=== PATIENT | female | born 1990 | race Caucasian/White ===

== ENCOUNTER 2019-01-28 15:05 | Observation (INO) | payer MEDICAID ==
[2019-01-28] MEDS ORDERED: Sodium Chloride 0.9% 10 ML Syringe FLUSH PRN ×2 (15:10→16:56)
[2019-01-28] MEDS ORDERED: Sodium Chloride 0.9% 2.5 ML Syringe FLUSH PRN ×2 (15:10→16:56)
[2019-01-28] MEDS ORDERED: HYDROmorphone 1 MG/ML Syringe IM ONE (15:30)
[2019-01-28 16:09] LABS: BLOOD UREA NITROGEN,BUN 5 mg/dL (7.0-18.0); CARBON DIOXIDE,CO2 24.6 mmol/L (21.0-32.0); CHLORIDE,CL 100 mmol/L (98-107); GLUCOSE RANDOM 87 mg/dL (74-106); POTASSIUM,K 4.2 mmol/L (3.5-5.1); SODIUM,NA 135 mmol/L (136-145)
--- NOTE | 2019-01-28 16:09 | EDM.PDOC ---
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: Immunologic History: Reports: Other (See Below) Other Immunologic History: Lupus - Past Surgical History HEENT Surgical History: Reports: Adenoidectomy, Tonsillectomy Female Surgical History: Reports: Section Social & Family History - Family History Family Medical History: Noncontributory - Tobacco Use Smoking Status *Q: Current Every Day Smoker Years of Tobacco use: 8 Packs/Tins Daily: 0.5 - Recreational Drug Use Recreational Drug Use: No Course - Vital Signs Last Recorded V/S: Last Vital Signs Temp 96.6 F 01/28/19 15:15 Pulse 102 H 01/28/19 15:15 Resp 18 01/28/19 15:15 BP 128/74 01/28/19 15:15 Pulse Ox 100 01/28/19 15:15 - Orders/Labs/Meds Orders: Active Orders 24 hr Category Date Time Status Breast Complete Lt [US] Stat Exams 01/28/19 15:09 Taken COMPREHENSIVE METABOLIC PN,CMP [CHEM] Stat Lab 01/28/19 15:27 Received CULTURE BLOOD [BC] Stat Lab 01/28/19 15:27 Received CULTURE BLOOD [BC] Stat Lab 01/28/19 15:40 Received Sodium Chloride 0.9% [Saline Flush] Med 01/28/19 15:10 Active 10 ml FLUSH ASDIRECTED PRN Sodium Chloride 0.9% [Saline Flush] Med 01/28/19 15:10 Active 2.5 ml FLUSH ASDIRECTED PRN Blood Culture x2 Reflex Set [OM.PC] Stat Oth 01/28/19 15:09 Ordered Saline Lock Insert [OM.PC] Stat Oth 01/28/19 15:10 Ordered Medication Orders Sodium Chloride (Saline Flush) 10 ml FLUSH ASDIRECTED PRN PRN Reason: Keep Vein Open Sodium Chloride (Saline Flush) 2.5 ml FLUSH ASDIRECTED PRN PRN Reason: Keep Vein Open Labs: Laboratory Tests 01/28/19 01/28/19 Range/Units 15:27 15:27 WBC 15.54 H (4.0-11.0) K/uL RBC 4.45 (4.30-5.90) M/uL Hgb 12.5 (12.0-16.0) g/dL Hct 38.2 (36.0-46.0) % MCV 85.8 (80.0-98.0) fL MCH 28.1 (27.0-32.0) pg MCHC 32.7 (31.0-37.0) g/dL RDW Std Deviation 39.6 (28.0-62.0) fl RDW Coeff of Daily 13 (11.0-15.0) % Plt Count 443 H (150-400) K/uL MPV 8.50 (7.40-12.00) fL Neut % (Auto) 75.0 (48.0-80.0) % Lymph % (Auto) 14.9 L (16.0-40.0) % [place] % (Auto) 8.9 (0.0-15.0) % Eos % (Auto) 0.9 (0.0-7.0) % Baso % (Auto) 0.3 (0.0-1.5) % Neut # (Auto) 11.7 H (1.4-5.7) K/uL Lymph # (Auto) 2.3 (0.6-2.4) K/uL [place] # (Auto) 1.4 H (0.0-0.8) K/uL Eos # (Auto) 0.1 (0.0-0.7) K/uL Baso # (Auto) 0.0 (0.0-0.1) K/uL Nucleated RBC % 0.0 /100WBC Nucleated RBCs # 0 K/uL Lactate 0.8 (0.20-2.00) mmol/L Meds: Medications Generic Name Dose Route Start Last Admin Trade Name Freq PRN Reason Stop Dose Admin Sodium Chloride 10 ml 01/28/19 15:10 Saline Flush FLUSH ASDIRECTED PRN Keep Vein Open Sodium Chloride 2.5 ml 01/28/19 15:10 Saline Flush FLUSH ASDIRECTED PRN Keep Vein Open Discontinued Medications Generic Name Dose Route Start Last Admin Trade Name Parisa PRN Reason Stop Dose Admin Hydromorphone HCl 1 mg 01/28/19 15:30 Dilaudid IM 01/28/19 15:31 ONETIME ONE Departure - Discharge Information Referrals: PCP,None [Primary Care Provider] - - My Orders Last 24 Hours: My Active Orders 01/28/19 15:09 Breast Complete Lt [US] Stat Blood Culture x2 Reflex Set [OM.PC] Stat 01/28/19 15:10 Sodium Chloride 0.9% [Saline Flush] 10 ml FLUSH ASDIRECTED PRN Sodium Chloride 0.9% [Saline Flush] 2.5 ml FLUSH ASDIRECTED PRN Saline Lock Insert [OM.PC] Stat 01/28/19 15:27 COMPREHENSIVE METABOLIC PN,CMP [CHEM] Stat CULTURE BLOOD [BC] Stat 01/28/19 15:40 CULTURE BLOOD [BC] Stat - Assessment/Plan Last 24 Hours: My Active Orders 01/28/19 15:09 Breast Complete Lt [US] Stat Blood Culture x2 Reflex Set [OM.PC] Stat 01/28/19 15:10 Sodium Chloride 0.9% [Saline Flush] 10 ml FLUSH ASDIRECTED PRN Sodium Chloride 0.9% [Saline Flush] 2.5 ml FLUSH ASDIRECTED PRN Saline Lock Insert [OM.PC] Stat 01/28/19 15:27 COMPREHENSIVE METABOLIC PN,CMP [CHEM] Stat CULTURE BLOOD [BC] Stat 01/28/19 15:40 CULTURE BLOOD [BC] Stat
--- NOTE | 2019-01-28 16:36 | US ---
Left breast ultrasound: Multiple real-time images were obtained in symptomatic area. Comparison: Previous left breast ultrasound exam of 01/20/19. Previous study showed a hypoechoic area within the left breast measuring around 1.4 cm. This has significantly changed in the interim from prior exam which has enlarged up to 4.8 cm and is more irregular in appearance. Findings are suspicious for enlarging and complicated abscess. Impression: Worsening abnormality within the left breast as noted above most likely representing enlarging abscess. Diagnostic code #5 MTDD
[2019-01-28] MEDS ORDERED: diphenhydrAMINE 50 MG/ML SDV IVPUSH PRN (16:56)
[2019-01-28] MEDS ORDERED: Sodium Chloride 0.9% 10 ML SDV IV PRN (16:56)
[2019-01-28] MEDS ORDERED: Ondansetron 4 MG/2 ML SDV IVPUSH PRN (16:56)
[2019-01-28] MEDS ORDERED: HYDROmorphone 2 MG/ML Syringe IVPUSH PRN (16:56)
--- NOTE | 2019-01-28 17:09 | PCM.HP.2 ---
H&P History of Present Illness - General Date of Service: 01/28/19 Admit Problem/Dx: Admission Diagnosis/Problem Admission Diagnosis/Problem Mastitis Source of Information: Patient History Limitations: Reports: No Limitations - History of Present Illness Initial Comments - Free Text/Narative: Patient is a 28 year old female who presents with left breast abscess and mastitis. She developed pain redness and warmth last week. She presented to the ER and was found to have a small abscess with mastitis. She was placed on Bactrim. Since then her breast has become more erythematous, painful, and warm. She represented to an OSH ER today. She was transferred here for further work up and management. She has a history of lupus and was diagnosed with atrial fibrillation at one time. Her pulse was mildly elevated but she is also on metoprolol. BP was normal. WBC was 15.5K. US showed a 4.8 cm left retroareolar breast abscess. The only other surgery she has had is a tonsillectomy and adenoidectomy as a child and a section. She smokes socially and wears nipple rings however these are not in. 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 Exam - Exam Exam: See Below - Vital Signs Vital Signs: Last Vital Signs Temp 35.9 C 01/28/19 15:15 Pulse 102 H 01/28/19 15:15 Resp 18 01/28/19 15:15 BP 128/74 01/28/19 15:15 Pulse Ox 100 01/28/19 15:15 Weight: 79.8 kg - Exam General: Alert, Oriented, Cooperative HEENT: Conjunctiva Clear, Mucosa Moist & [place], Posterior Pharynx Clear Neck: Supple, Trachea Midline Lungs: Clear to Auscultation, Normal Respiratory Effort Cardiovascular: Regular Rate, Regular Rhythm Skin: Other (Large area of edematous red warm tender breast tissue with small area of fluctuance at the 12 oclock position on the left breast. No nipple drainage. ) Neuro Extensive - Mental Status: Alert, Oriented x3 - Patient Data Lab Results Last 24 hrs: Laboratory Results - last 24 hr 01/28/19 01/28/19 01/28/19 Range/Units 15:27 15:27 15:27 WBC 15.54 H (4.0-11.0) K/uL RBC 4.45 (4.30-5.90) M/uL Hgb 12.5 (12.0-16.0) g/dL Hct 38.2 (36.0-46.0) % MCV 85.8 (80.0-98.0) fL MCH 28.1 (27.0-32.0) pg MCHC 32.7 (31.0-37.0) g/dL RDW Std Deviation 39.6 (28.0-62.0) fl RDW Coeff of Daily 13 (11.0-15.0) % Plt Count 443 H (150-400) K/uL MPV 8.50 (7.40-12.00) fL Neut % (Auto) 75.0 (48.0-80.0) % Lymph % (Auto) 14.9 L (16.0-40.0) % [place] % (Auto) 8.9 (0.0-15.0) % Eos % (Auto) 0.9 (0.0-7.0) % Baso % (Auto) 0.3 (0.0-1.5) % Neut # (Auto) 11.7 H (1.4-5.7) K/uL Lymph # (Auto) 2.3 (0.6-2.4) K/uL [place] # (Auto) 1.4 H (0.0-0.8) K/uL Eos # (Auto) 0.1 (0.0-0.7) K/uL Baso # (Auto) 0.0 (0.0-0.1) K/uL Nucleated RBC % 0.0 /100WBC Nucleated RBCs # 0 K/uL Lactate 0.8 (0.20-2.00) mmol/L Sodium 135 L (136-145) mmol/L Potassium 4.2 (3.5-5.1) mmol/L Chloride 100 (98-107) mmol/L Carbon Dioxide 24.6 (21.0-32.0) mmol/L BUN 5 L (7.0-18.0) mg/dL Creatinine 0.7 (0.6-1.0) mg/dL Est Cr Clr Drug Dosing 91.90 mL/min Estimated GFR (MDRD) > 60.0 ml/min Glucose 87 (74-106) mg/dL Calcium 9.3 (8.5-10.1) mg/dL Total Bilirubin 0.3 (0.2-1.0) mg/dL AST 26 (15-37) IU/L ALT 33 (14-63) IU/L Alkaline Phosphatase 170 H (46-116) U/L Total Protein 8.2 (6.4-8.2) g/dL Albumin 3.2 L (3.4-5.0) g/dL Globulin 5.0 H (2.6-4.0) g/dL Albumin/Globulin Ratio 0.6 L (0.9-1.6) Result Diagrams: 01/28/19 15:27 01/28/19 15:27 - Problem List (1) Mastitis SNOMED Code(s): 109159940 ICD Code: N61.0 - MASTITIS WITHOUT ABSCESS Status: Acute Current Visit: Yes (2) Breast abscess SNOMED Code(s): 28237951 ICD Code: N61.1 - ABSCESS OF THE BREAST AND NIPPLE Status: Acute Current Visit: Yes Problem List Initiated/Reviewed/Updated: Yes Orders Last 24hrs: Active Orders 24 hr Category Date Time Status Patient Status [ADT] Routine ADT 01/28/19 16:56 Ordered Antiembolic Devices [RC] .Routine Care 01/28/19 17:02 Ordered Antiembolic Devices [RC] PER UNIT ROUTINE Care 01/28/19 17:02 Ordered EKG Documentation Completion [RC] STAT Care 01/28/19 16:51 Active Oxygen Therapy [RC] PRN Care 01/28/19 16:56 Ordered RT Incentive Spirometry [RC] Q1HWA Care 01/28/19 16:56 Ordered Up ad Marie [RC] ASDIRECTED Care 01/28/19 16:56 Ordered VTE/DVT Education [RC] PER UNIT ROUTINE Care 01/28/19 17:02 Ordered Vital Signs [RC] PER UNIT ROUTINE Care 01/28/19 16:56 Ordered Regular Diet [DIET] Diet 01/28/19 Dinner Ordered BASIC METABOLIC PANEL,BMP [CHEM] AM Lab 01/29/19 05:11 Ordered CBC W/O DIFF,HEMOGRAM [HEME] AM Lab 01/29/19 05:11 Ordered CULTURE BLOOD [BC] Stat Lab 01/28/19 15:27 Received CULTURE BLOOD [BC] Stat Lab 01/28/19 15:40 Received Acetaminophen/oxyCODONE [Percocet 325-5 MG] Med 01/28/19 16:56 Ordered 2 tab PO Q4H PRN Clindamycin Phosphate [Cleocin] 300 mg Med 01/28/19 17:15 Ordered Sodium Chloride 0.9% [Normal Saline] 50 ml IV Q8H Enoxaparin [Lovenox] Med 01/29/19 09:00 Ordered 40 mg SUBCUT DAILY HYDROmorphone [Dilaudid] Med 01/28/19 16:56 Ordered 0.5 mg IVPUSH Q1H PRN Ondansetron [Zofran] Med 01/28/19 16:56 Ordered 4 mg IVPUSH Q6H PRN Sodium Chloride 0.9% @ 125 MLS/HR (1000ml) Med 01/28/19 17:00 Ordered Sodium Chloride 0.9% [Normal Saline] 1,000 ml IV ASDIRECTED Sodium Chloride 0.9% [Normal Saline] Med 01/28/19 16:56 Ordered 10 ml IV ASDIRECTED PRN Sodium Chloride 0.9% [Saline Flush] Med 01/28/19 15:10 Active 10 ml FLUSH ASDIRECTED PRN Sodium Chloride 0.9% [Saline Flush] Med 01/28/19 16:56 Ordered 10 ml FLUSH ASDIRECTED PRN Sodium Chloride 0.9% [Saline Flush] Med 01/28/19 15:10 Active 2.5 ml FLUSH ASDIRECTED PRN Sodium Chloride 0.9% [Saline Flush] Med 01/28/19 16:56 Ordered 2.5 ml FLUSH ASDIRECTED PRN diphenhydrAMINE [Benadryl] Med 01/28/19 16:56 Ordered 50 mg IVPUSH Q4H PRN Blood Culture x2 Reflex Set [OM.PC] Stat Oth 01/28/19 15:09 Ordered DVT/VTE Prophylaxis Reflex [OM.PC] Routine Oth 01/28/19 17:02 Ordered Peripheral IV Insertion Adult [OM.PC] Urgent Oth 01/28/19 16:56 Ordered SCD [Sequential Compression Device] [OM.PC] Stat Oth 01/28/19 17:02 Ordered Saline Lock Insert [OM.PC] Stat Oth 01/28/19 15:10 Ordered Resuscitation Status Routine Resus Stat 01/28/19 16:56 Ordered Medication Orders Diphenhydramine HCl (Benadryl) 50 mg IVPUSH Q4H PRN PRN Reason: Itching Enoxaparin Sodium (Lovenox) 40 mg SUBCUT DAILY BRONWYN Hydromorphone HCl (Dilaudid) 0.5 mg IVPUSH Q1H PRN PRN Reason: Pain (severe 7-10) Clindamycin Phosphate 300 mg/ (Sodium Chloride) 52 mls @ 100 mls/hr IV Q8H BRONW[facility] Sodium Chloride (Normal Saline) 1,000 mls @ 125 mls/hr IV ASDIRECTED BRON[facility] Ondansetron HCl (Zofran) 4 mg IVPUSH Q6H PRN PRN Reason: Nausea/Vomiting Oxycodone/Acetaminophen (Percocet 325-5 Mg) 2 tab PO Q4H PRN PRN Reason: Pain (moderate 4-6) Sodium Chloride (Saline Flush) 10 ml FLUSH ASDIRECTED PRN PRN Reason: Keep Vein Open Sodium Chloride (Saline Flush) 2.5 ml FLUSH ASDIRECTED PRN PRN Reason: Keep Vein Open Sodium Chloride (Saline Flush) 10 ml FLUSH ASDIRECTED PRN PRN Reason: Keep Vein Open Sodium Chloride (Saline Flush) 2.5 ml FLUSH ASDIRECTED PRN PRN Reason: Keep Vein Open Sodium Chloride (Normal Saline) 10 ml IV ASDIRECTED PRN PRN Reason: IV Use Assessment/Plan Comment:: Patient is a 28 year old female with mastitis and a large breast abscess. She received vancomycin at the OSH but got red and itchy from it. She is allergic to amoxicillin. Will put her on IV clindamycin. Consented patient for incision and drainage of her left breast abscess for tomorrow. Pre-op EKG shows no evidence of atrial fibrillation. We discussed the procedure, need for dressing changes afterwards, expected yoseph-operative course and risks including bleeding infection or damage to surrounding structures. She verbalized understanding and wishes to proceed.
[2019-01-28] MEDS: Sodium Chloride 0.9% 1,000 ML IV SCH (18:05)
[2019-01-28] MEDS: Clindamycin Phosphate in D5W 300 MG in Premix Bag 1 BAG IV SCH ×2 (18:08)
[2019-01-28] MEDS: Acetaminophen/oxyCODONE 325-5 MG Tab PO PRN (18:41)
[2019-01-29] MEDS: Clindamycin Phosphate in D5W 300 MG in Premix Bag 1 BAG IV SCH ×4 (01:10→09:23)
[2019-01-29] MEDS: Sodium Chloride 0.9% 1,000 ML IV SCH (01:18)
[2019-01-29 05:38] LABS: BLOOD UREA NITROGEN,BUN 5 mg/dL (7.0-18.0); CARBON DIOXIDE,CO2 27.4 mmol/L (21.0-32.0); CHLORIDE,CL 102 mmol/L (98-107); GLUCOSE RANDOM 106 mg/dL (74-106); POTASSIUM,K 4.6 mmol/L (3.5-5.1); SODIUM,NA 137 mmol/L (136-145)
[2019-01-29] MEDS: Acetaminophen/oxyCODONE 325-5 MG Tab PO PRN ×3 (07:11→18:08)
[2019-01-29] MEDS: Enoxaparin 40 MG/0.4 ML Syringe SUBCUT SCH (09:29)
[2019-01-29] MEDS ORDERED: Propofol 200 MG/20 ML SDV ONE (10:11)
[2019-01-29] MEDS ORDERED: Midazolam 1 MG/ML 2 ML SDV ONE (10:11)
[2019-01-29] MEDS ORDERED: fentaNYL 100 MCG/2 ML SDV ONE (10:11)
[2019-01-29] MEDS ORDERED: Ondansetron 4 MG/2 ML SDV ONE (10:16)
[2019-01-29] MEDS ORDERED: Dexamethasone 4 MG/ML 5 ML MDV ONE (10:16)
[2019-01-29] MEDS ORDERED: Lidocaine 1% with EPINEPHrine 1:100,000 20 ML MDV ONE (10:19)
--- NOTE | 2019-01-29 10:33 | PCM.PREANE ---
Preanesthetic Assessment - Anesthesia/Transfusion/Family Hx Anesthesia History: Prior Anesthesia Without Reaction Family History of Anesthesia Reaction: No Transfusion History: No Prior Transfusion(s) - Review of Systems General: No Symptoms Pulmonary: No Symptoms Cardiovascular: No Symptoms Gastrointestinal: No Symptoms Neurological: No Symptoms Other: Reports: None - Physical Assessment NPO Status Date: 01/28/19 Vital Signs: Last Vital Signs Temp 98.5 F 01/29/19 07:51 Pulse 105 H 01/29/19 07:51 Resp 16 01/29/19 07:51 BP 90/52 L 01/29/19 07:51 Pulse Ox 95 01/29/19 07:51 Height: 5 ft 1 in Weight: 79.197 kg ASA Class: 2 Mental Status: Alert & Oriented x3 Airway Class: Mallampati = 2 Dentition: Reports: Normal Dentition ROM/Head Extension: Full Lungs: Clear to Auscultation, Normal Respiratory Effort Cardiovascular: Regular Rate, Regular Rhythm - Lab Values: Laboratory Last Values WBC 13.24 K/uL (4.0-11.0) H 01/29/19 05:19 RBC 4.02 M/uL (4.30-5.90) L 01/29/19 05:19 Hgb 11.2 g/dL (12.0-16.0) L 01/29/19 05:19 Hct 34.8 % (36.0-46.0) L 01/29/19 05:19 MCV 86.6 fL (80.0-98.0) 01/29/19 05:19 MCH 27.9 pg (27.0-32.0) 01/29/19 05:19 MCHC 32.2 g/dL (31.0-37.0) 01/29/19 05:19 RDW Std Deviation 40.8 fl (28.0-62.0) 01/29/19 05:19 RDW Coeff of Daily 13 % (11.0-15.0) 01/29/19 05:19 Plt Count 390 K/uL (150-400) 01/29/19 05:19 MPV 8.50 fL (7.40-12.00) 01/29/19 05:19 Neut % (Auto) 75.0 % (48.0-80.0) 01/28/19 15:27 Lymph % (Auto) 14.9 % (16.0-40.0) L 01/28/19 15:27 [place] % (Auto) 8.9 % (0.0-15.0) 01/28/19 15:27 Eos % (Auto) 0.9 % (0.0-7.0) 01/28/19 15:27 Baso % (Auto) 0.3 % (0.0-1.5) 01/28/19 15:27 Neut # (Auto) 11.7 K/uL (1.4-5.7) H 01/28/19 15:27 Lymph # (Auto) 2.3 K/uL (0.6-2.4) 01/28/19 15:27 [place] # (Auto) 1.4 K/uL (0.0-0.8) H 01/28/19 15:27 Eos # (Auto) 0.1 K/uL (0.0-0.7) 01/28/19 15: Baso # (Auto) 0.0 K/uL (0.0-0.1) 01/28/19 15:27 Nucleated RBC % 0.0 /100WBC 01/29/19 05:19 Nucleated RBCs # 0 K/uL 01/29/19 05:19 Lactate 0.8 mmol/L (0.20-2.00) 01/28/19 15:27 Sodium 137 mmol/L (136-145) 01/29/19 05:19 Potassium 4.6 mmol/L (3.5-5.1) 01/29/19 05:19 Chloride 102 mmol/L (98-107) 01/29/19 05:19 Carbon Dioxide 27.4 mmol/L (21.0-32.0) 01/29/19 05:19 BUN 5 mg/dL (7.0-18.0) L 01/29/19 05:19 Creatinine 0.7 mg/dL (0.6-1.0) 01/29/19 05:19 Est Cr Clr Drug Dosing 91.90 mL/min 01/29/19 05:19 Estimated GFR (MDRD) > 60.0 ml/min 01/29/19 05:19 Glucose 106 mg/dL (74-106) 01/29/19 05:19 Calcium 8.4 mg/dL (8.5-10.1) L 01/29/19 05:19 Total Bilirubin 0.3 mg/dL (0.2-1.0) 01/28/19 15:27 AST 26 IU/L (15-37) 01/28/19 15:27 ALT 33 IU/L (14-63) 01/28/19 15:27 Alkaline Phosphatase 170 U/L (46-116) H 01/28/19 15:27 Total Protein 8.2 g/dL (6.4-8.2) 01/28/19 15:27 Albumin 3.2 g/dL (3.4-5.0) L 01/28/19 15:27 Globulin 5.0 g/dL (2.6-4.0) H 01/28/19 15:27 Albumin/Globulin Ratio 0.6 (0.9-1.6) L 01/28/19 15:27 - Allergies Allergies/Adverse Reactions: Allergies Allergy/AdvReac Type Severity Reaction Status Date / Time amoxicillin Allergy Other Verified 01/28/19 18:12 vancomycin Allergy Hives Verified 01/28/19 18:12 - Blood Blood Available: No - Anesthesia Plan Pre-Op Medication Ordered: None - Acknowledgements Anesthesia Type Planned: General Anesthesia Pt an Appropriate Candidate for the Planned Anesthesia: Yes Alternatives and Risks of Anesthesia Discussed w Pt/Guardian: Yes Pt/Guardian Understands and Agrees with Anesthesia Plan: Yes Additional Comments: pmh : sero pos SLE, hx of a single episode of parox afib, now in sinus, smoker PLAN: ga/lma PreAnesthesia Questionnaire - Past Health History Medical/Surgical History: Denies Medical/Surgical History Cardiovascular History: Reports: 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: Immunologic History: Reports: Other (See Below) Other Immunologic History: Lupus - Infectious Disease History Infectious Disease History: Reports: Chicken Pox, Scarlet Fever - Past Surgical History HEENT Surgical History: Reports: Adenoidectomy, Tonsillectomy Female Surgical History: Reports: Section - SUBSTANCE USE Smoking Status *Q: Light Tobacco Smoker Tobacco Use Within Last Twelve Months: Cigarettes Recreational Drug Use History: No - HOME MEDS Home Medications: Home Meds Metoprolol Tartrate 50 mg PO DAILY 01/28/19 [History] - CURRENT (IN HOUSE) MEDS Current Meds: Current Medications Diphenhydramine HCl (Benadryl) 50 mg IVPUSH Q4H PRN PRN Reason: Itching Enoxaparin Sodium (Lovenox) 40 mg SUBCUT DAILY [facility] Last Admin: 01/29/19 09:29 Dose: 40 mg Hydromorphone HCl (Dilaudid) 0.5 mg IVPUSH Q1H PRN PRN Reason: Pain (severe 7-10) Clindamycin Phosphate 300 mg/ (Premix) 50 mls @ 96.154 mls/hr IV Q8H [facility] Last Admin: 01/29/19 09:23 Dose: 96.154 mls/hr Sodium Chloride (Normal Saline) 1,000 mls @ 125 mls/hr IV ASDIRECTED [facility] Last Admin: 01/29/19 01:18 Dose: 125 mls/hr Ondansetron HCl (Zofran) 4 mg IVPUSH Q6H PRN PRN Reason: Nausea/Vomiting Oxycodone/Acetaminophen (Percocet 325-5 Mg) 2 tab PO Q4H PRN PRN Reason: Pain (moderate 4-6) Last Admin: 01/29/19 07:11 Dose: 2 tab Sodium Chloride (Saline Flush) 10 ml FLUSH ASDIRECTED PRN PRN Reason: Keep Vein Open Sodium Chloride (Saline Flush) 2.5 ml FLUSH ASDIRECTED PRN PRN Reason: Keep Vein Open Sodium Chloride (Saline Flush) 10 ml FLUSH ASDIRECTED PRN PRN Reason: Keep Vein Open Sodium Chloride (Saline Flush) 2.5 ml FLUSH ASDIRECTED PRN PRN Reason: Keep Vein Open Sodium Chloride (Normal Saline) 10 ml IV ASDIRECTED PRN PRN Reason: IV Use Discontinued Medications Dexamethasone (Dexamethasone) Confirm Administered Dose 20 mg .ROUTE .STK-MED ONE Stop: 01/29/19 10:17 Fentanyl (Sublimaze) Confirm Administered Dose 100 mcg .ROUTE .STK-MED ONE Stop: 01/29/19 10:12 Hydromorphone HCl (Dilaudid) 1 mg IM ONETIME ONE Stop: 01/28/19 15:31 Last Admin: 01/28/19 17:26 Dose: Not Given Lidocaine HCl (Xylocaine-Mpf 1%) Confirm Administered Dose 5 ml .ROUTE .STK-MED ONE Stop: 01/29/19 10:17 Lidocaine/Epinephrine (Xylocaine 1% With Epinephrine 1:100,000) Confirm Administered Dose 20 ml .ROUTE .STK-MED ONE Stop: 01/29/19 10:20 Midazolam HCl (Versed 1 Mg/Ml) Confirm Administered Dose 2 mg .ROUTE .STK-MED ONE Stop: 01/29/19 10:12 Ondansetron HCl (Zofran) Confirm Administered Dose 4 mg .ROUTE .STK-MED ONE Stop: 01/29/19 10:17 Propofol (Diprivan 20 Ml) Confirm Administered Dose 200 mg .ROUTE .STK-MED ONE Stop: 01/29/19 10:12
[2019-01-29] MEDS ORDERED: fentaNYL 100 MCG/2 ML SDV IVPUSH PRN (11:08)
[2019-01-29] MEDS ORDERED: Ondansetron 4 MG/2 ML SDV IVPUSH PRN (11:08)
[2019-01-29] MEDS ORDERED: HYDROmorphone 2 MG/ML Syringe IVPUSH PRN (11:09)
--- NOTE | 2019-01-29 11:28 | PCM.OPNOTE ---
- General Post-Op/Procedure Note Date of Surgery/Procedure: 01/29/19 Operative Procedure(s): Incision and drainage left breast abscess Findings: 5 x 5 x 5 cm left breast retroareolar abscess Pre Op Diagnosis: Left breast abscess Post-Op Diagnosis: same Anesthesia Technique: MAC Primary Surgeon: Katy Boogie Fluid Replacement, Intraop: 400 EBL in mLs: 5 Condition: Fair Free Text/Narrative:: Intake & Output 01/28/19 01/29/19 01/29/19 22:59 06:59 14:59 Intake Total 2096 838 Output Total 1150 Balance 946 838
--- NOTE | 2019-01-29 11:45 | PCM.POSTAN ---
POST ANESTHESIA ASSESSMENT - MENTAL STATUS Mental Status: Alert, Oriented - VITAL SIGNS Vital Signs: Last Vital Signs Temp 98.2 F 01/29/19 11:23 Pulse 83 01/29/19 11:43 Resp 12 01/29/19 11:43 BP 105/65 01/29/19 11:43 Pulse Ox 95 01/29/19 11:43 - RESPIRATORY Respiratory Status: Respiratory Rate WNL, Airway Patent, O2 Saturation Stable - CARDIOVASCULAR CV Status: Pulse Rate WNL, Blood Pressure Stable - GASTROINTESTINAL GI Status: No Symptoms - POST OP HYDRATION Hydration Status: Adequate & Stable
--- NOTE | 2019-01-29 12:02 | OR ---
SURGEON: KATY BOOGIE MD DATE OF PROCEDURE: 01/28/2019 PREOPERATIVE DIAGNOSIS: Left breast abscess. POSTOPERATIVE DIAGNOSIS: Left breast abscess. PROCEDURE PERFORMED: Incision and drainage of left breast abscess. PRIMARY SURGEON: Katy Boogie MD. ANESTHESIA: General LMA. FLUIDS: See Anesthesia record. ESTIMATED BLOOD LOSS: 5 mL. FINDINGS: 5 x 5 x 5 cm left retroareolar breast abscess. COMPLICATIONS: None. INDICATIONS: The patient is a 28-year-old female who developed left breast pain last week. She was diagnosed with a small left breast abscess and placed on antibiotics. The swelling, tenderness, erythema, and warmth continued to worsen. She was admitted to our hospital yesterday with a large left breast abscess. She was given fluids and IV antibiotics overnight. She was consented for a left breast incision and drainage of this abscess. I explained the procedure; expected perioperative course including the need for dressing changes; as well as the risks including bleeding, infection, or damage to surrounding structures. She verbalized understanding and wishes to proceed. PROCEDURE IN DETAIL: The patient was brought into the OR and placed on the OR table in supine position. A time-out was completed verifying the patient's name, age, date of , allergies, and procedure to be performed. General LMA anesthesia was induced. The left breast was prepped and draped in usual standard fashion. There was a small area of fluctuance at the 12 o'clock position along the areolar border. Using a 15 blade, I made an incision through this. I dissected down to the level of the breast tissue. A hemostat was brought in the field, and I explored the breast tissue underneath. I then popped into a large abscess cavity and immediately expressed a large amount of white-appearing purulent material. This was cultured for anaerobic and aerobic bacteria and sent for Gram stain. The purulent material was then suctioned out, and I explored the wound cavity. I bluntly dissected all of the loculations in the abscess cavity. It was irrigated with normal saline until it ran clear. I then measured the wound cavity. It measured 5 x 5 x 5 cm in size. A moistened Kerlix roll was then used to pack the wound and dry 4 x 4 fluffs were placed over the top. The patient tolerated the procedure well. All counts were complete and correct at the end of the case. She was transferred to the PACU in stable condition. LEMEASH / MORGAN /[id number]
--- NOTE | 2019-01-29 13:50 | PCM.SURGPN ---
- General Info Date of Service: 01/29/19 Date of Surgery/Procedure: 01/29/19 POD#: 0 Functional Status: Reports: Pain Controlled, Tolerating Diet, Ambulating, Urinating - Review of Systems General: Reports: No Symptoms HEENT: Reports: No Symptoms Pulmonary: Reports: No Symptoms Cardiovascular: Reports: No Symptoms Gastrointestinal: Reports: No Symptoms Skin: Reports: No Symptoms - Patient Data Vitals - Most Recent: Last Vital Signs Temp 35.8 C 01/29/19 13:20 Pulse 100 01/29/19 13:20 Resp 18 01/29/19 13:20 BP 120/58 L 01/29/19 13:20 Pulse Ox 95 01/29/19 13:20 Weight - Most Recent: 79.197 kg I&O - Last 24 Hours: Intake & Output 01/28/19 01/29/19 01/29/19 22:59 06:59 14:59 Intake Total 2096 1738 Output Total 1150 Balance 946 1738 Lab Results Last 24 Hrs: Laboratory Results - last 24 hr 01/28/19 01/28/19 01/28/19 Range/Units 15:27 15:27 15:27 WBC 15.54 H (4.0-11.0) K/uL RBC 4.45 (4.30-5.90) M/uL Hgb 12.5 (12.0-16.0) g/dL Hct 38.2 (36.0-46.0) % MCV 85.8 (80.0-98.0) fL MCH 28.1 (27.0-32.0) pg MCHC 32.7 (31.0-37.0) g/dL RDW Std Deviation 39.6 (28.0-62.0) fl RDW Coeff of Daily 13 (11.0-15.0) % Plt Count 443 H (150-400) K/uL MPV 8.50 (7.40-12.00) fL Neut % (Auto) 75.0 (48.0-80.0) % Lymph % (Auto) 14.9 L (16.0-40.0) % [place] % (Auto) 8.9 (0.0-15.0) % Eos % (Auto) 0.9 (0.0-7.0) % Baso % (Auto) 0.3 (0.0-1.5) % Neut # (Auto) 11.7 H (1.4-5.7) K/uL Lymph # (Auto) 2.3 (0.6-2.4) K/uL [place] # (Auto) 1.4 H (0.0-0.8) K/uL Eos # (Auto) 0.1 (0.0-0.7) K/uL Baso # (Auto) 0.0 (0.0-0.1) K/uL Nucleated RBC % 0.0 /100WBC Nucleated RBCs # 0 K/uL Lactate 0.8 (0.20-2.00) mmol/L Sodium 135 L (136-145) mmol/L Potassium 4.2 (3.5-5.1) mmol/L Chloride 100 (98-107) mmol/L Carbon Dioxide 24.6 (21.0-32.0) mmol/L BUN 5 L (7.0-18.0) mg/dL Creatinine 0.7 (0.6-1.0) mg/dL Est Cr Clr Drug Dosing 91.90 mL/min Estimated GFR (MDRD) > 60.0 ml/min Glucose 87 (74-106) mg/dL Calcium 9.3 (8.5-10.1) mg/dL Total Bilirubin 0.3 (0.2-1.0) mg/dL AST 26 (15-37) IU/L ALT 33 (14-63) IU/L Alkaline Phosphatase 170 H (46-116) U/L Total Protein 8.2 (6.4-8.2) g/dL Albumin 3.2 L (3.4-5.0) g/dL Globulin 5.0 H (2.6-4.0) g/dL Albumin/Globulin Ratio 0.6 L (0.9-1.6) 01/29/19 01/29/19 Range/Units 05:19 05:19 WBC 13.24 H (4.0-11.0) K/uL RBC 4.02 L (4.30-5.90) M/uL Hgb 11.2 L (12.0-16.0) g/dL Hct 34.8 L (36.0-46.0) % MCV 86.6 (80.0-98.0) fL MCH 27.9 (27.0-32.0) pg MCHC 32.2 (31.0-37.0) g/dL RDW Std Deviation 40.8 (28.0-62.0) fl RDW Coeff of Daily 13 (11.0-15.0) % Plt Count 390 (150-400) K/uL MPV 8.50 (7.40-12.00) fL Neut % (Auto) (48.0-80.0) % Lymph % (Auto) (16.0-40.0) % [place] % (Auto) (0.0-15.0) % Eos % (Auto) (0.0-7.0) % Baso % (Auto) (0.0-1.5) % Neut # (Auto) (1.4-5.7) K/uL Lymph # (Auto) (0.6-2.4) K/uL [place] # (Auto) (0.0-0.8) K/uL Eos # (Auto) (0.0-0.7) K/uL Baso # (Auto) (0.0-0.1) K/uL Nucleated RBC % 0.0 /100WBC Nucleated RBCs # 0 K/uL Lactate (0.20-2.00) mmol/L Sodium 137 (136-145) mmol/L Potassium 4.6 (3.5-5.1) mmol/L Chloride 102 (98-107) mmol/L Carbon Dioxide 27.4 (21.0-32.0) mmol/L BUN 5 L (7.0-18.0) mg/dL Creatinine 0.7 (0.6-1.0) mg/dL Est Cr Clr Drug Dosing 91.90 mL/min Estimated GFR (MDRD) > 60.0 ml/min Glucose 106 (74-106) mg/dL Calcium 8.4 L (8.5-10.1) mg/dL Total Bilirubin (0.2-1.0) mg/dL AST (15-37) IU/L ALT (14-63) IU/L Alkaline Phosphatase (46-116) U/L Total Protein (6.4-8.2) g/dL Albumin (3.4-5.0) g/dL Globulin (2.6-4.0) g/dL Albumin/Globulin Ratio (0.9-1.6) Med Orders - Current: Current Medications Clindamycin HCl (Cleocin) 450 mg PO Q6H [facility] Diphenhydramine HCl (Benadryl) 50 mg IVPUSH Q4H PRN PRN Reason: Itching Enoxaparin Sodium (Lovenox) 40 mg SUBCUT DAILY [facility] Last Admin: 01/29/19 09:29 Dose: 40 mg Fentanyl (Sublimaze) 50 mcg IVPUSH Q5M PRN PRN Reason: Pain (severe 7-10) Stop: 01/30/19 11:09 Hydromorphone HCl (Dilaudid) 0.5 mg IVPUSH Q1H PRN PRN Reason: Pain (severe 7-10) Hydromorphone HCl (Dilaudid) 0.25 mg IVPUSH .Q5MIN PRN PRN Reason: Pain (severe 7-10) Stop: 01/30/19 11:09 Ondansetron HCl (Zofran) 4 mg IVPUSH Q6H PRN PRN Reason: Nausea/Vomiting Ondansetron HCl (Zofran) 4 mg IVPUSH ONETIME PRN PRN Reason: Nausea/Vomiting Oxycodone/Acetaminophen (Percocet 325-5 Mg) 2 tab PO Q4H PRN PRN Reason: Pain (moderate 4-6) Last Admin: 01/29/19 12:35 Dose: 2 tab Sodium Chloride (Saline Flush) 10 ml FLUSH ASDIRECTED PRN PRN Reason: Keep Vein Open Sodium Chloride (Saline Flush) 2.5 ml FLUSH ASDIRECTED PRN PRN Reason: Keep Vein Open Sodium Chloride (Saline Flush) 10 ml FLUSH ASDIRECTED PRN PRN Reason: Keep Vein Open Sodium Chloride (Saline Flush) 2.5 ml FLUSH ASDIRECTED PRN PRN Reason: Keep Vein Open Sodium Chloride (Normal Saline) 10 ml IV ASDIRECTED PRN PRN Reason: IV Use Discontinued Medications Dexamethasone (Dexamethasone) Confirm Administered Dose 20 mg .ROUTE .STK-MED ONE Stop: 01/29/19 10:17 Fentanyl (Sublimaze) Confirm Administered Dose 100 mcg .ROUTE .STK-MED ONE Stop: 01/29/19 10:12 Hydromorphone HCl (Dilaudid) 1 mg IM ONETIME ONE Stop: 01/28/19 15:31 Last Admin: 01/28/19 17:26 Dose: Not Given Clindamycin Phosphate 300 mg/ (Premix) 50 mls @ 96.154 mls/hr IV Q8H [facility] Last Admin: 01/29/19 09:23 Dose: 96.154 mls/hr Sodium Chloride (Normal Saline) 1,000 mls @ 125 mls/hr IV ASDIRECTED [facility] Last Admin: 01/29/19 01:18 Dose: 125 mls/hr Acetaminophen (Ofirmev) Confirm Administered Dose 100 mls @ as directed IV .STK- MED ONE Stop: 01/29/19 10:57 Lidocaine HCl (Xylocaine-Mpf 1%) Confirm Administered Dose 5 ml .ROUTE .STK-MED ONE Stop: 01/29/19 10:17 Lidocaine/Epinephrine (Xylocaine 1% With Epinephrine 1:100,000) Confirm Administered Dose 20 ml .ROUTE .STK-MED ONE Stop: 01/29/19 10:20 Midazolam HCl (Versed 1 Mg/Ml) Confirm Administered Dose 2 mg .ROUTE .STK-MED ONE Stop: 01/29/19 10:12 Ondansetron HCl (Zofran) Confirm Administered Dose 4 mg .ROUTE .STK-MED ONE Stop: 01/29/19 10:17 Propofol (Diprivan 20 Ml) Confirm Administered Dose 200 mg .ROUTE .STK-MED ONE Stop: 01/29/19 10:12 - Exam Wound/Incisions: Healing Well, Other (Serosanguinous drainage on top dressings. These were changed) General: Alert, Oriented, Cooperative Lungs: Normal Respiratory Effort Cardiovascular: Regular Rate Skin: Warm, Dry, Intact Physical Findings Comment:: Serosanguinous drainage from internal packing. Cellulitis resolved. - Problem List & Annotations (1) Mastitis SNOMED Code(s): 213745713 Code(s): N61.0 - MASTITIS WITHOUT ABSCESS Status: Acute Current Visit: Yes (2) Breast abscess SNOMED Code(s): 69961238 Code(s): N61.1 - ABSCESS OF THE BREAST AND NIPPLE Status: Acute Current Visit: Yes - Problem List Review Problem List Initiated/Reviewed/Updated: Yes - My Orders Last 24 Hours: Active Orders 24 hr Category Date Time Status Patient Status [ADT] Routine ADT 01/28/19 16:56 Active Antiembolic Devices [RC] .Routine Care 01/28/19 17:02 Active Antiembolic Devices [RC] PER UNIT ROUTINE Care 01/28/19 17:02 Active Bradycardia-Neuroaxis [employer] [RC] ROUTINE Care 01/29/19 11:08 Active Hypertension-Neuroaxis [employer] [RC] ROUTINE Care 01/29/19 11:08 Active Hypotension-Neuroaxis [employer] [RC] ROUTINE Care 01/29/19 11:08 Active Oxygen Therapy [RC] PRN Care 01/28/19 16:56 Active RT Incentive Spirometry [RC] Q1HWA Care 01/28/19 16:56 Active Up ad Marie [RC] ASDIRECTED Care 01/28/19 16:56 Active VTE/DVT Education [RC] PER UNIT ROUTINE Care 01/28/19 17:02 Active Vital Signs [RC] Q4H Care 01/28/19 16:56 Active Regular Diet [DIET] Diet 01/29/19 Breakfast Active CULTURE ANAEROBIC [RM] Routine Lab 01/29/19 11:04 Received CULTURE BLOOD [BC] Stat Lab 01/28/19 15:27 Received CULTURE BLOOD [BC] Stat Lab 01/28/19 15:40 Received CULTURE WOUND [RM] Routine Lab 01/29/19 11:04 Received GRAM STAIN [RM] Routine Lab 01/29/19 11:04 Received Acetaminophen/oxyCODONE [Percocet 325-5 MG] Med 01/28/19 16:56 Active 2 tab PO Q4H PRN Clindamycin HCl [Cleocin] Med 01/29/19 13:45 Active 450 mg PO Q6H Enoxaparin [Lovenox] Med 01/29/19 09:00 Active 40 mg SUBCUT DAILY HYDROmorphone [Dilaudid] Med 01/29/19 11:09 Active 0.25 mg IVPUSH .Q5MIN PRN HYDROmorphone [Dilaudid] Med 01/28/19 16:56 Active 0.5 mg IVPUSH Q1H PRN Ondansetron [Zofran] Med 01/29/19 11:08 Active 4 mg IVPUSH ONETIME PRN Ondansetron [Zofran] Med 01/28/19 16:56 Active 4 mg IVPUSH Q6H PRN Sodium Chloride 0.9% [Normal Saline] Med 01/28/19 16:56 Active 10 ml IV ASDIRECTED PRN Sodium Chloride 0.9% [Saline Flush] Med 01/28/19 15:10 Active 10 ml FLUSH ASDIRECTED PRN Sodium Chloride 0.9% [Saline Flush] Med 01/28/19 16:56 Active 10 ml FLUSH ASDIRECTED PRN Sodium Chloride 0.9% [Saline Flush] Med 01/28/19 15:10 Active 2.5 ml FLUSH ASDIRECTED PRN Sodium Chloride 0.9% [Saline Flush] Med 01/28/19 16:56 Active 2.5 ml FLUSH ASDIRECTED PRN diphenhydrAMINE [Benadryl] Med 01/28/19 16:56 Active 50 mg IVPUSH Q4H PRN fentaNYL [Sublimaze] Med 01/29/19 11:08 Active 50 mcg IVPUSH Q5M PRN Blood Culture x2 Reflex Set [OM.PC] Stat Oth 01/28/19 15:09 Ordered DVT/VTE Prophylaxis Reflex [OM.PC] Routine Oth 01/28/19 17:02 Ordered Peripheral IV Insertion Adult [OM.PC] Urgent Oth 01/28/19 16:56 Ordered SCD [Sequential Compression Device] [OM.PC] Stat Oth 01/28/19 17:02 Ordered Saline Lock Insert [OM.PC] Stat Oth 01/28/19 15:10 Ordered Resuscitation Status Routine Resus Stat 01/28/19 16:56 Ordered Medication Orders Clindamycin HCl (Cleocin) 450 mg PO Q6H [facility] Diphenhydramine HCl (Benadryl) 50 mg IVPUSH Q4H PRN PRN Reason: Itching Enoxaparin Sodium (Lovenox) 40 mg SUBCUT DAILY [facility] Last Admin: 01/29/19 09:29 Dose: 40 mg Fentanyl (Sublimaze) 50 mcg IVPUSH Q5M PRN PRN Reason: Pain (severe 7-10) Stop: 01/30/19 11:09 Hydromorphone HCl (Dilaudid) 0.5 mg IVPUSH Q1H PRN PRN Reason: Pain (severe 7-10) Hydromorphone HCl (Dilaudid) 0.25 mg IVPUSH .Q5MIN PRN PRN Reason: Pain (severe 7-10) Stop: 01/30/19 11:09 Ondansetron HCl (Zofran) 4 mg IVPUSH Q6H PRN PRN Reason: Nausea/Vomiting Ondansetron HCl (Zofran) 4 mg IVPUSH ONETIME PRN PRN Reason: Nausea/Vomiting Oxycodone/Acetaminophen (Percocet 325-5 Mg) 2 tab PO Q4H PRN PRN Reason: Pain (moderate 4-6) Last Admin: 01/29/19 12:35 Dose: 2 tab Admin: 01/29/19 07:11 Dose: 2 tab Admin: 01/28/19 18:41 Dose: 2 tab Sodium Chloride (Saline Flush) 10 ml FLUSH ASDIRECTED PRN PRN Reason: Keep Vein Open Sodium Chloride (Saline Flush) 2.5 ml FLUSH ASDIRECTED PRN PRN Reason: Keep Vein Open Sodium Chloride (Saline Flush) 10 ml FLUSH ASDIRECTED PRN PRN Reason: Keep Vein Open Sodium Chloride (Saline Flush) 2.5 ml FLUSH ASDIRECTED PRN PRN Reason: Keep Vein Open Sodium Chloride (Normal Saline) 10 ml IV ASDIRECTED PRN PRN Reason: IV Use - Plan Plan (Free Text/Narrative):: -D/C IVF. Regular diet. -Percocet prn pain -No need for morning labs -Dressing change in the morning. Likely d/c after that. -Switch to oral clindamycin
[2019-01-29] MEDS: Clindamycin HCl 150 MG Cap PO SCH ×2 (13:59→20:30)
[2019-01-30] MEDS: Clindamycin HCl 150 MG Cap PO SCH ×2 (00:59→07:20)
[2019-01-30] MEDS: Acetaminophen/oxyCODONE 325-5 MG Tab PO PRN ×2 (07:20→11:29)
--- NOTE | 2019-01-30 08:22 | PCM48HPAN ---
Post Anesthesia Note - EVALUATION WITHIN 48HRS OF ANESTHETIC Vital Signs in Normal Range: Yes Patient Participated in Evaluation: Yes Respiratory Function Stable: Yes Airway Patent: Yes Cardiovascular Function Stable: Yes Hydration Status Stable: Yes Pain Control Satisfactory: Yes Nausea and Vomiting Control Satisfactory: Yes Mental Status Recovered: Yes Vital Signs: Last Vital Signs Temp 97.2 F 01/30/19 07:15 Pulse 83 01/30/19 07:15 Resp 16 01/30/19 07:15 BP 102/56 L 01/30/19 07:15 Pulse Ox 95 01/30/19 07:15
[2019-01-30] MEDS: Enoxaparin 40 MG/0.4 ML Syringe SUBCUT SCH (09:00)
--- NOTE | 2019-01-30 11:42 | PCM.DCSUM1 ---
Discharge Summary - Hospital Course Free Text/Narrative:: Patient is a 28-year-old female who presented to the hospital with a one-week history of worsening breast abscess. She was seen in an outside hospital and given Bactrim DS. Despite this her swelling erythema tenderness and warmth worsened. She was evaluated at the same hospital and found to have a 10 cm area of edema. She is transferred here for surgical management. Ultrasound of the left breast showed a complex 4.8 cm collection of fluid underneath the nipple. Her white blood cell count was 15,000. She was admitted to the hospital and given IV antibiotics. She is daily or the next day. The left breast abscess was incised and drained. The abscess cavity was 5 cm in diameter. She is admitted to the floor afterwards and her postoperative course was uncomplicated. Gram stain shows many white blood cells, gram-positive cocci in chains, pairs and clusters. She was transitioned from IV to oral clindamycin. Her pain is well- controlled. Her first dressing change with well with no acute issues. She was discharged home. - Discharge Data Discharge Date: 01/30/19 Discharge Disposition: Home, Self-Care 01 Condition: Fair - Referral to Home Health Primary Care Physician: PCP None - Discharge Diagnosis/Problem(s) (1) Mastitis SNOMED Code(s): 643687649 ICD Code: N61.0 - MASTITIS WITHOUT ABSCESS Status: Acute Current Visit: Yes (2) Breast abscess SNOMED Code(s): 40268748 ICD Code: N61.1 - ABSCESS OF THE BREAST AND NIPPLE Status: Acute Current Visit: Yes - Patient Summary/Data Operative Procedure(s) Performed: Incision and drainage left breast abscess - Patient Instructions Diet: Regular Diet as Tolerated Activity: No Lifting Over 20 Pounds (For 1 week ), Rest and Relax Today Activity, Other: No work until next saturday. Driving: Do Not Drive (while on narcotics ) Showering/Bathing: May Shower Wound/Incision Care: Keep Operative Site/Wound Site Clean and Dry Notify Provider of: Fever, Increased Pain, Swelling and Redness, Drainage - Discharge Plan *PRESCRIPTION DRUG MONITORING PROGRAM REVIEWED*: Yes *COPY OF PRESCRIPTION DRUG MONITORING REPORT IN PATIENT SANJAY: Yes Prescriptions/Med Rec: Clindamycin HCl [Cleocin] 450 mg PO Q6H #20 cap Omeprazole 20 mg PO ACBREAKFAST #30 cap.sr Home Medications: Home Meds Metoprolol Tartrate 50 mg PO DAILY 01/28/19 [History] Clindamycin HCl [Cleocin] 450 mg PO Q6H #20 cap 01/30/19 [Rx] Omeprazole 20 mg PO ACBREAKFAST #30 cap.sr 01/30/19 [Rx] Patient Handouts: Acetaminophen; Oxycodone tablets, Mastitis, [id number], Clindamycin capsules, Incision and Drainage, Care After, Omeprazole tablets (OTC ) Referrals: Katy Boogie MD [Emergency Provider] - 02/06/19 8:30 am - Discharge Summary/Plan Comment DC Time >30 min.: No - Review of Systems General: Reports: No Symptoms HEENT: Reports: No Symptoms Pulmonary: Reports: No Symptoms Cardiovascular: Reports: No Symptoms Gastrointestinal: Reports: No Symptoms - Patient Data Vitals - Most Recent: Last Vital Signs Temp 36.2 C 01/30/19 07:15 Pulse 83 01/30/19 07:15 Resp 16 01/30/19 07:15 BP 102/56 L 01/30/19 07:15 Pulse Ox 95 01/30/19 07:15 Weight - Most Recent: 79.197 kg I&O - Last 24 hours: Intake & Output 01/29/19 01/30/19 01/30/19 22:59 06:59 14:59 Intake Total 600 2700 Output Total 1800 1500 Balance -1200 1200 [place] Results - Last 24 hrs: Microbiology 01/28/19 15:40 Aerobic Blood Culture - Preliminary Blood - Venous - Lab Draw NO GROWTH AFTER 1 DAY Anaerobic Blood Culture - Preliminary NO GROWTH AFTER 1 DAY 01/28/19 15:27 Aerobic Blood Culture - Preliminary Blood - Venous NO GROWTH AFTER 1 DAY Anaerobic Blood Culture - Preliminary NO GROWTH AFTER 1 DAY 01/29/19 11:04 Gram Stain - Preliminary Breast, Left Med Orders - Current: Current Medications Clindamycin HCl (Cleocin) 450 mg PO Q6H [facility] Last Admin: 01/30/19 07:20 Dose: 450 mg Diphenhydramine HCl (Benadryl) 50 mg IVPUSH Q4H PRN PRN Reason: Itching Enoxaparin Sodium (Lovenox) 40 mg SUBCUT DAILY [facility] Last Admin: 01/30/19 09:00 Dose: Not Given Hydromorphone HCl (Dilaudid) 0.5 mg IVPUSH Q1H PRN PRN Reason: Pain (severe 7-10) Ondansetron HCl (Zofran) 4 mg IVPUSH Q6H PRN PRN Reason: Nausea/Vomiting Ondansetron HCl (Zofran) 4 mg IVPUSH ONETIME PRN PRN Reason: Nausea/Vomiting Oxycodone/Acetaminophen (Percocet 325-5 Mg) 2 tab PO Q4H PRN PRN Reason: Pain (moderate 4-6) Last Admin: 01/30/19 11:29 Dose: 2 tab Sodium Chloride (Saline Flush) 10 ml FLUSH ASDIRECTED PRN PRN Reason: Keep Vein Open Sodium Chloride (Saline Flush) 2.5 ml FLUSH ASDIRECTED PRN PRN Reason: Keep Vein Open Sodium Chloride (Saline Flush) 10 ml FLUSH ASDIRECTED PRN PRN Reason: Keep Vein Open Sodium Chloride (Saline Flush) 2.5 ml FLUSH ASDIRECTED PRN PRN Reason: Keep Vein Open Sodium Chloride (Normal Saline) 10 ml IV ASDIRECTED PRN PRN Reason: IV Use Discontinued Medications Dexamethasone (Dexamethasone) Confirm Administered Dose 20 mg .ROUTE .STK-MED ONE Stop: 01/29/19 10:17 Fentanyl (Sublimaze) Confirm Administered Dose 100 mcg .ROUTE .STK-MED ONE Stop: 01/29/19 10:12 Fentanyl (Sublimaze) 50 mcg IVPUSH Q5M PRN PRN Reason: Pain (severe 7-10) Stop: 01/30/19 11:09 Hydromorphone HCl (Dilaudid) 1 mg IM ONETIME ONE Stop: 01/28/19 15:31 Last Admin: 01/28/19 17:26 Dose: Not Given Hydromorphone HCl (Dilaudid) 0.25 mg IVPUSH .Q5MIN PRN PRN Reason: Pain (severe 7-10) Stop: 01/30/19 11:09 Clindamycin Phosphate 300 mg/ (Premix) 50 mls @ 96.154 mls/hr IV Q8H [facility] Last Admin: 01/29/19 09:23 Dose: 96.154 mls/hr Sodium Chloride (Normal Saline) 1,000 mls @ 125 mls/hr IV ASDIRECTED [facility] Last Admin: 01/29/19 01:18 Dose: 125 mls/hr Acetaminophen (Ofirmev) Confirm Administered Dose 100 mls @ as directed IV .STK- MED ONE Stop: 01/29/19 10:57 Lidocaine HCl (Xylocaine-Mpf 1%) Confirm Administered Dose 5 ml .ROUTE .STK-MED ONE Stop: 01/29/19 10:17 Lidocaine/Epinephrine (Xylocaine 1% With Epinephrine 1:100,000) Confirm Administered Dose 20 ml .ROUTE .STK-MED ONE Stop: 01/29/19 10:20 Midazolam HCl (Versed 1 Mg/Ml) Confirm Administered Dose 2 mg .ROUTE .STK-MED ONE Stop: 01/29/19 10:12 Ondansetron HCl (Zofran) Confirm Administered Dose 4 mg .ROUTE .STK-MED ONE Stop: 01/29/19 10:17 Propofol (Diprivan 20 Ml) Confirm Administered Dose 200 mg .ROUTE .STK-MED ONE Stop: 01/29/19 10:12 - Exam General: Reports: Alert, Oriented HEENT: Reports: Pupils Equal, Pupils Reactive Lungs: Reports: Normal Respiratory Effort Cardiovascular: Reports: Regular Rate Skin: Reports: Warm, Dry, Intact, Other (No further cellulitis. ) Wound/Incisions: Reports: Other (Dressings soaked in serosanguineous drainage. These were removed and the wound cavity appears hemostatic with no evidence of any further purulence. New dressings were applied.) Psy/Mental Status: Reports: Alert, Normal Affect
== END 2019-01-30 12:15 | disposition home or self-care (01) ==
LOC: MW.ED 15:05 → MW.MS 16:56
PROVIDERS: ADMIT Surgery; ATTEND Surgery
DX: N61.1 Abscess of the breast and nipple (principal); F17.210 Nicotine dependence, cigarettes, uncomplicated; Z79.899 Other long term (current) drug therapy; Z88.0 Allergy status to penicillin; Z88.1 Allergy status to other antibiotic agents
CPT/HCPCS: 19020; 36415; 76641; 80048; 80053; 83605; 85025; 85027; 87040; 87070; 87075; 87186; 87205; 93005; 96361; 96365; 96366; 96372; 96376; 99285; A9270; G0378; J0131; J1100; J1650; J2001; J2250; J2405; J2704; J3010; J3490; J7040; 87077

== ENCOUNTER 2020-05-16 10:39 | Emergency (ER) | payer SELFPAY ==
[2020-05-16] MEDS ORDERED: Sodium Chloride 0.9% 10 ML Syringe FLUSH PRN (10:56)
[2020-05-16] MEDS ORDERED: Sodium Chloride 0.9% 1,000 ML IV ONE (10:56)
[2020-05-16] MEDS ORDERED: Acetaminophen 500 MG Tab PO ONE (10:56)
[2020-05-16] MEDS ORDERED: Sodium Chloride 0.9% 2.5 ML Syringe FLUSH PRN (10:56)
--- NOTE | 2020-05-16 11:03 | EDM.PDOC ---
ED HPI GENERAL MEDICAL PROBLEM - General Chief Complaint: General Stated Complaint: WEAKNESS IN LEGS Time Seen by Provider: 05/16/20 10:40 Source of Information: Reports: Patient History Limitations: Reports: No Limitations - History of Present Illness INITIAL COMMENTS - FREE TEXT/NARRATIVE: 30-year-old female past medical history recently diagnosed Covid infection presents for body aches, muscle spasms in bilateral lower lower extremities, shortness of breath, headache, decreased p.o. Her LLE hurts worse than right. No swelling, redness, warmth. Was evaluated and had extensive labs and CXR at outside ED yesterday. Bilateral legs Pain Score (Numeric/FACES): 9 - Related Data Allergies Allergy/AdvReac Type Severity Reaction Status Date / Time amoxicillin Allergy Other Verified 05/16/20 10:58 vancomycin Allergy Hives Verified 05/16/20 10:58 Home Meds: Home Meds . 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 ED EXAM, GENERAL - Physical Exam Exam: See Below Exam Limited By: No Limitations General Appearance: Alert, WD/WN, No Apparent Distress Nose: Normal Inspection Throat/Mouth: Normal Voice, No Airway Compromise Head: Atraumatic, Normocephalic Respiratory/Chest: No Respiratory Distress, Lungs Clear, Normal Breath Sounds, No Accessory Muscle Use Cardiovascular: Normal Peripheral Pulses, Tachycardia Extremities: Normal Inspection, No Pedal Edema, Other (grossly symmetric, mild b/l calf TTP, no warmth or erythema) Neurological: Alert Psychiatric: Normal Affect Skin Exam: Warm, Dry, Intact, Normal Color Course - Vital Signs Last Recorded V/S: Last Vital Signs Temp 97.3 F 05/16/20 10:58 Pulse 88 05/16/20 10:58 Resp 17 05/16/20 10:58 BP 128/79 05/16/20 10:58 Pulse Ox 98 05/16/20 10:58 - Orders/Labs/Meds Orders: Active Orders 24 hr Category Date Time Status Chest 1V Frontal [CR] Stat Exams 05/16/20 10:57 Taken Sodium Chloride 0.9% [Saline Flush] Med 05/16/20 10:56 Active 10 ml FLUSH ASDIRECTED PRN Sodium Chloride 0.9% [Saline Flush] Med 05/16/20 10:56 Active 2.5 ml FLUSH ASDIRECTED PRN Saline Lock Insert [OM.PC] Stat Oth 05/16/20 10:56 Ordered Medication Orders Sodium Chloride (Saline Flush) 10 ml FLUSH ASDIRECTED PRN PRN Reason: Keep Vein Open Last Admin: 05/16/20 11:25 Dose: 10 ml Documented by: JESSICA Sodium Chloride (Saline Flush) 2.5 ml FLUSH ASDIRECTED PRN PRN Reason: Keep Vein Open Last Admin: 05/16/20 11:25 Dose: 2.5 ml Documented by: JESSICA Labs: Laboratory Tests 05/16/20 05/16/20 05/16/20 Range/Units 11:19 11:19 11:19 WBC 24.72 H (4.0-11.0) K/uL RBC 4.64 (4.30-5.90) M/uL Hgb 13.4 (12.0-16.0) g/dL Hct 41.6 (36.0-46.0) % MCV 89.7 (80.0-98.0) fL MCH 28.9 (27.0-32.0) pg MCHC 32.2 (31.0-37.0) g/dL RDW Std Deviation 44.4 (28.0-62.0) fl RDW Coeff of Daily 14 (11.0-15.0) % Plt Count 431 H (150-400) K/uL MPV 8.60 (7.40-12.00) fL Add Manual Diff YES Neutrophils % (Manual) 62 (48.0-80.0) % Band Neutrophils % 2 % Lymphocytes % (Manual) 29 (16.0-40.0) % Monocytes % (Manual) 4 (0.0-15.0) % Eosinophils % (Manual) 3 (0.0-7.0) % Nucleated RBC % 0.0 /100WBC Absolute Seg Neuts 15.3 H (1.4-5.7) Band Neutrophils # 0.5 Lymphocytes # (Manual) 7.2 H (0.6-2.4) Monocytes # (Manual) 1.0 H (0.0-0.8) Eosinophils # (Manual) 0.7 (0.0-0.7) Nucleated RBCs # 0 K/uL INR 0.92 APTT 21.7 (18.6-31.3) SEC Sodium 139 (136-145) mmol/L Potassium 3.5 (3.5-5.1) mmol/L Chloride 103 (98-107) mmol/L Carbon Dioxide 25.5 (21.0-32.0) mmol/L BUN 10 (7.0-18.0) mg/dL Creatinine 0.8 (0.6-1.0) mg/dL Est Cr Clr Drug Dosing 75.20 mL/min Estimated GFR (MDRD) > 60.0 ml/min Glucose 107 H (74-106) mg/dL Calcium 8.3 L (8.5-10.1) mg/dL Total Bilirubin 0.2 (0.2-1.0) mg/dL AST 13 L (15-37) IU/L ALT 35 (14-63) IU/L Alkaline Phosphatase 92 (46-116) U/L Total Protein 6.3 L (6.4-8.2) g/dL Albumin 2.9 L (3.4-5.0) g/dL Globulin 3.4 (2.6-4.0) g/dL Albumin/Globulin Ratio 0.9 (0.9-1.6) Meds: Medications Generic Name Dose Route Start Last Admin Trade Name Freq PRN Reason Stop Dose Admin Sodium Chloride 10 ml 05/16/20 10:56 05/16/20 11:25 Saline Flush FLUSH 10 ml ASDIRECTED PRN Administration Keep Vein Open Sodium Chloride 2.5 ml 05/16/20 10:56 05/16/20 11:25 Saline Flush FLUSH 2.5 ml ASDIRECTED PRN Administration Keep Vein Open Discontinued Medications Generic Name Dose Route Start Last Admin Trade Name Freq PRN Reason Stop Dose Admin Acetaminophen 1,000 mg 05/16/20 10:56 05/16/20 11:24 Tylenol Extra Strength PO 05/16/20 10:57 1,000 mg ONETIME ONE Administration Sodium Chloride 1,000 mls @ 999 mls/hr 05/16/20 10:56 05/16/20 11:25 Normal Saline IV 05/16/20 11:56 999 mls/hr .Bolus ONE Administration - Re-Assessments/Exams Free Text/Narrative Re-Assessment/Exam: 05/16/20 11:02 Patient presents with several complaints in setting of Covid infection. Will get chest x-ray, basic labs. Will get bilateral lower extremity ultrasound to rule out DVT. Low suspicion PE. 05/16/20 11:47 Labs with leukocytosis in setting of current steroid use 05/16/20 12:32 Ultrasound imaging is unremarkable. Labs are grossly unremarkable aside from the leukocytosis in setting of current steroid use. We will follow up chest x- ray and disposition accordingly. 05/16/20 12:34 Chest x-ray wet read appears unremarkable. Will discharge patient with instructions to continue medications given at outside institution and return precautions explained. Departure - Departure Time of Disposition: 12:34 Disposition: Home, Self-Care 01 Condition: Good Clinical Impression: COVID-19 - Discharge Information Instructions: COVID-19 Frequently Asked Questions Referrals: PCP,None [Primary Care Provider] - Forms: ED Department Discharge Additional Instructions: The following information is given to patients seen in the emergency department who are being discharged to home. This information is to outline your options for follow-up care. We provide all patients seen in our emergency department with a follow-up referral. The need for follow-up, as well as the timing and circumstances, are variable depending upon the specifics of your emergency department visit. If you don't have a primary care physician on staff, we will provide you with a referral. We always advise you to contact your personal physician following an emergency department visit to inform them of the circumstance of the visit and for follow-up with them and/or the need for any referrals to a consulting specialist. The emergency department will also refer you to a specialist when appropriate. This referral assures that you have the opportunity for follow-up care with a specialist. All of these measure are taken in an effort to provide you with optimal care, which includes your follow-up. Under all circumstances we always encourage you to contact your private physician who remains a resource for coordinating your care. When calling for follow-up care, please make the office aware that this follow-up is from your recent emergency room visit. If for any reason you are refused follow-up, please contact the [facility] Emergency Department at and asked to speak to the emergency department charge nurse. Please follow up with your primary care physician. If you do not have a primary care physician, see below: [facility] [address] [place] [address] [phone] My [facility] [address] [place] [address] [facility] [address], [place] [address] Sepsis Event Note (ED) - Focused Exam Vital Signs: Vital Signs Temp Pulse Resp BP Pulse Ox 05/16/20 10:58 97.3 F 88 17 128/79 98 - My Orders Last 24 Hours: My Active Orders 05/16/20 10:56 Sodium Chloride 0.9% [Saline Flush] 10 ml FLUSH ASDIRECTED PRN Sodium Chloride 0.9% [Saline Flush] 2.5 ml FLUSH ASDIRECTED PRN Saline Lock Insert [OM.PC] Stat 05/16/20 10:57 Chest 1V Frontal [CR] Stat - Assessment/Plan Last 24 Hours: My Active Orders 05/16/20 10:56 Sodium Chloride 0.9% [Saline Flush] 10 ml FLUSH ASDIRECTED PRN Sodium Chloride 0.9% [Saline Flush] 2.5 ml FLUSH ASDIRECTED PRN Saline Lock Insert [OM.PC] Stat 05/16/20 10:57 Chest 1V Frontal [CR] Stat
[2020-05-16 12:03] LABS: BLOOD UREA NITROGEN,BUN 10 mg/dL (7.0-18.0); CARBON DIOXIDE,CO2 25.5 mmol/L (21.0-32.0); CHLORIDE,CL 103 mmol/L (98-107); GLUCOSE RANDOM 107 mg/dL (74-106); POTASSIUM,K 3.5 mmol/L (3.5-5.1); SODIUM,NA 139 mmol/L (136-145)
--- NOTE | 2020-05-16 12:30 | US ---
INDICATION: Pain and swelling in both lower extremities TECHNIQUE: A compression venous ultrasound exam was performed of both lower extremities using rizzo scale imaging, color Doppler and spectral Doppler analysis. FINDINGS: Sonographic imaging of the lower extremities demonstrates normal compressibility and color Doppler venous blood flow within the common femoral, deep femoral, and proximal greater saphenous veins. Within the thighs the femoral veins are patent and compressible. At a lower level the popliteal and posterior tibial veins also show normal compressibility and color Doppler venous blood flow. IMPRESSION: Normal venous ultrasound exam. No evidence of deep vein thrombosis within either the left or right lower extremity. Dictated by Eduard Gusman MD @ May 16 2020 12:27PM Signed by Dr. Eduard Gusman @ May 16 2020 12:28PM
--- NOTE | 2020-05-16 12:41 | CR ---
INDICATION: COVID-19. TECHNIQUE: Chest 1 view. COMPARISON: None FINDINGS: Cardiovascular and mediastinum: Heart size and vasculature are normal in caliber and appearance. Mediastinum is within normal limits. Lungs and pleural space: Lungs are clear. No sign of infiltrate or mass. No sign of pleural effusion. No pneumothorax. Bones and soft tissues: No significant findings. IMPRESSION: Lungs are clear. Dictated by Cesar Ervin MD @ May 16 2020 12:39PM Signed by Dr. Cesar Ervin @ May 16 2020 12:40PM
== END 2020-05-16 13:00 | disposition home or self-care (01) ==
LOC: MW.ED 10:39
DX: U07.1 COVID-19 (principal); M32.9 Systemic lupus erythematosus, unspecified; Z88.0 Allergy status to penicillin; Z88.1 Allergy status to other antibiotic agents
CPT/HCPCS: 36415; 71045; 80053; 85025; 85610; 85730; 93970; 96360; 99285; A9270; J7030; 99284

== ENCOUNTER 2021-01-24 05:30 | Inpatient (IN) | payer MEDICAID ==
[2021-01-24] MEDS ORDERED: Sodium Chloride 0.9% 10 ML Syringe FLUSH PRN (05:49)
[2021-01-24] MEDS ORDERED: Citric Acid/Sodium Citrate Solution 30 ML Cup PO ONE (05:49)
[2021-01-24] MEDS ORDERED: Sodium Chloride 0.9% 10 ML SDV IV PRN (05:49)
[2021-01-24] MEDS ORDERED: Sodium Chloride 0.9% 2.5 ML Syringe FLUSH PRN (05:49)
[2021-01-24] MEDS: Lactated Ringers 1,000 ML IV SCH ×5 (06:00→22:09)
[2021-01-24] MEDS ORDERED: Oxytocin/0.9 % Sodium Chloride 30 UNIT/500 ML BAG IV SCH ×2 (06:00→09:15)
[2021-01-24] MEDS ORDERED: Morphine PF 10 MG/10 ML SDV ONE (07:21)
--- NOTE | 2021-01-24 07:45 | PCM.PREANE ---
Preanesthetic Assessment - Anesthesia/Transfusion/Family Hx Anesthesia History: Prior Anesthesia Without Reaction Other Type of Anesthesia Reaction Comment: PONV Family History of Anesthesia Reaction: No Family History of Anesthesia Reaction, Other: PONV Transfusion History: No Prior Transfusion(s) - Review of Systems General: No Symptoms Pulmonary: No Symptoms, Other (quit smoking upon ) Cardiovascular: No Symptoms, Other (History or SVT with beta robinson therapy. Pt states physician discontinued therapy 1.5 years ago with no return of symptoms.) Gastrointestinal: Other (GERD with ) Neurological: No Symptoms (Pt denies neurologic or hematologic pathology) Other: Reports: None (pt states no bleeding/clotting disorders or blood thinner use) - Physical Assessment NPO Status Date: 01/24/21 NPO Status Time: 00:00 Height: 1.52 m Weight: 78.925 kg ASA Class: 2 Mental Status: Alert & Oriented x3 Airway Class: Mallampati = 2 Dentition: Reports: Normal Dentition Thyro-Mental Finger Breadths: 3 Mouth Opening Finger Breadths: 3 ROM/Head Extension: Full Lungs: Clear to Auscultation, Normal Respiratory Effort Cardiovascular: Regular Rate, Regular Rhythm - Lab Values: Laboratory Last Values WBC 11.30 K/uL (4.0-11.0) H 01/24/21 06:00 RBC 3.95 M/uL (4.30-5.90) L 01/24/21 06:00 Hgb 11.5 g/dL (12.0-16.0) L 01/24/21 06:00 Hct 34.6 % (36.0-46.0) L 01/24/21 06:00 MCV 87.6 fL (80.0-98.0) 01/24/21 06:00 MCH 29.1 pg (27.0-32.0) 01/24/21 06:00 MCHC 33.2 g/dL (31.0-37.0) 01/24/21 06:00 RDW Std Deviation 43.9 fl (28.0-62.0) 01/24/21 06:00 RDW Coeff of Daily 14 % (11.0-15.0) 01/24/21 06:00 Plt Count 441 K/uL (150-400) H 01/24/21 06:00 MPV 10.60 fL (7.40-12.00) 01/24/21 06:00 Nucleated RBC % 0.1 /100WBC 01/24/21 06:00 Nucleated RBCs # 0 K/uL 01/24/21 06:00 POC Glucose 84 mg/dL (70-99) 01/24/21 06:47 - Allergies Allergies/Adverse Reactions: Allergies Allergy/AdvReac Type Severity Reaction Status Date / Time amoxicillin Allergy flu Verified 01/24/21 06:22 symptoms vancomycin Allergy Hives Verified 01/24/21 06:22 - Blood Blood Available: No Product(s) Available: None - Anesthesia Plan Pre-Op Medication Ordered: Antacids - Acknowledgements Anesthesia Type Planned: General Anesthesia (Plan for Spinal with GETA as backup), Spinal Alternatives and Risks of Anesthesia Discussed w Pt/Guardian: Yes Pt/Guardian Understands and Agrees with Anesthesia Plan: Yes PreAnesthesia Questionnaire - Past Health History Medical/Surgical History: Denies Medical/Surgical History HEENT History: Reports: None Cardiovascular History: Reports: Arrhythmia Respiratory History: Reports: Other (See Below) Other Respiratory History: states asthma as a child due to second hand smoke exposure Gastrointestinal History: Reports: Other (See Below) Other Gastrointestinal History: heartburn with Genitourinary History: Reports: None [employer] History: Reports: Musculoskeletal History: Reports: Fracture Other Musculoskeletal History: states hx of fx hips, fingers and right wrist Neurological History: Reports: None Psychiatric History: Reports: Anxiety, Depression, PTSD Endocrine/Metabolic History: Reports: Diabetes, Gestational, Other (See Below) Other Endocrine/Metabolic History: hx Lupus Hematologic History: Reports: None Immunologic History: Reports: Other (See Below) Other Immunologic History: Lupus Oncologic (Cancer) History: Reports: None Dermatologic History: Reports: Psoriasis - Infectious Disease History Infectious Disease History: Reports: Chicken Pox, Scarlet Fever - Past Surgical History Head Surgeries/Procedures: Reports: None HEENT Surgical History: Reports: Adenoidectomy, Tonsillectomy Cardiovascular Surgical History: Reports: None Respiratory Surgical History: Reports: None GI Surgical History: Reports: None Female Surgical History: Reports: Section, Other (See Below) Other Female Surgeries/Procedures: I&D breast abscess Endocrine Surgical History: Reports: None Neurological Surgical History: Reports: None Musculoskeletal Surgical History: Reports: None Oncologic Surgical History: Reports: None Dermatological Surgical History: Reports: None - SUBSTANCE USE Tobacco Use Status *Q: Former Tobacco User Tobacco Use Within Last Twelve Months: Cigarettes - HOME MEDS Home Medications: Home Meds Acetaminophen/Diphenhydramine [Tylenol Pm Ex-Strength Caplet] 1 tab PO BEDTIME PRN 01/19/21 [History] Calcium Carbonate [Tums] 1 tab.chew CHEW ASDIRECTED PRN 01/19/21 [History] Pnv No.95/Ferrous Fum/Folic AC [ Vitamin Tablet] 1 tab PO DAILY 01/19/21 [History] - CURRENT (IN HOUSE) MEDS Current Meds: Current Medications Oxytocin/Sodium Chloride (Oxytocin 30 Unit In Ns 0.9% 500 Ml Premix) 30 unit in 500 mls @ 250 mls/hr IV TITRATE BRONWYN Lactated Ringer's (Ringers, Lactated) 1,000 mls @ 500 mls/hr IV BOLUS BRONWYN Last Admin: 01/24/21 07:29 Dose: 500 mls/hr Documented by: Sodium Chloride (Sodium Chloride 0.9% 10 Ml Syringe) 10 ml FLUSH ASDIRECTED PRN PRN Reason: Keep Vein Open Sodium Chloride (Sodium Chloride 0.9% 2.5 Ml Syringe) 2.5 ml FLUSH ASDIRECTED PRN PRN Reason: Keep Vein Open Sodium Chloride (Sodium Chloride 0.9% 10 Ml Sdv) 10 ml IV ASDIRECTED PRN PRN Reason: IV Use Discontinued Medications Citric Acid/Sodium Citrate (Citric Acid/Sodium Citrate Solution 30 Ml Cup) 30 ml PO ONETIME ONE Stop: 01/24/21 05:50 Last Admin: 01/24/21 07:30 Dose: 30 ml Documented by: Morphine Sulfate (Morphine Pf 10 Mg/10 Ml Sdv) Confirm Administered Dose 10 mg .ROUTE .STK-MED ONE Stop: 01/24/21 07:22
[2021-01-24] MEDS ORDERED: ceFAZolin 2 GM in Premix Bag 1 BAG IV ONE (08:07)
[2021-01-24] MEDS ORDERED: Dexamethasone 4 MG/ML 5 ML MDV ONE (08:54)
[2021-01-24] MEDS ORDERED: ePHEDrine 50 MG/ML SDV ONE (08:54)
[2021-01-24] MEDS ORDERED: Ondansetron 4 MG/2 ML SDV ONE (08:54)
[2021-01-24] MEDS ORDERED: Glycopyrrolate 0.2 MG/ML SDV ONE (08:54)
[2021-01-24] MEDS ORDERED: Lanolin 100% Cream 7 GM Tube TOP PRN (09:11)
[2021-01-24] MEDS ORDERED: Acetaminophen/oxyCODONE 325-5 MG Tab PO PRN ×2 (09:11)
[2021-01-24] MEDS ORDERED: Ondansetron 4 MG/2 ML SDV IVPUSH PRN (09:11)
[2021-01-24] MEDS ORDERED: Bisacodyl 10 MG Supp RECTAL PRN (09:11)
[2021-01-24] MEDS ORDERED: diphenhydrAMINE 50 MG/ML SDV IVPUSH PRN (09:11)
[2021-01-24] MEDS ORDERED: Ibuprofen 800 MG Tab PO PRN (09:11)
--- NOTE | 2021-01-24 09:17 | PCM.OPNOTE ---
- General Post-Op/Procedure Note Date of Surgery/Procedure: 01/24/21 Operative Procedure(s): Repeat low-transverse section Findings: Live male , Apgars 8/9, weight 3150g Normal-appearing uterus, ovaries, fallopian tubes Placenta intact and with 3-vessel cord Pre Op Diagnosis: 30yo @ 39w1d. History of section x1, declines trial of labor. Gestational diabetes, diet controlled. Positive COVID on pre-operative testing Post-Op Diagnosis: 30yo @ 39w1d. History of section x1, declines trial of labor. Gestational diabetes, diet controlled. Positive COVID on pre-operative testing Anesthesia Technique: Spinal Primary Surgeon: Katy Norman Pathology: Placenta Cord blood Fluid Replacement, Intraop: 2,000 Output, Urine Amount: 125 EBL in mLs: 700 Complications: None Condition: Good Free Text/Narrative:: Intake & Output 01/23/21 01/24/21 01/24/21 22:59 06:59 14:59 Intake Total 3000 Balance 3000 2g Ancef IV given for prophylaxis
--- NOTE | 2021-01-24 09:40 | PCM.POSTAN ---
POST ANESTHESIA ASSESSMENT - MENTAL STATUS Mental Status: Alert, Oriented - RESPIRATORY Respiratory Status: Respiratory Rate WNL, Airway Patent, O2 Saturation Stable - CARDIOVASCULAR CV Status: Pulse Rate WNL, Blood Pressure Stable - GASTROINTESTINAL GI Status: No Symptoms - PAIN Pain Score: 0 - POST OP HYDRATION Hydration Status: Adequate & Stable
--- NOTE | 2021-01-24 09:42 | PCM48HPAN ---
Post Anesthesia Note - EVALUATION WITHIN 48HRS OF ANESTHETIC Vital Signs in Normal Range: Yes Patient Participated in Evaluation: Yes Respiratory Function Stable: Yes Airway Patent: Yes Cardiovascular Function Stable: Yes Hydration Status Stable: Yes Pain Control Satisfactory: Yes Nausea and Vomiting Control Satisfactory: Yes Mental Status Recovered: Yes
[2021-01-24] MEDS: Ketorolac 30 MG/ML SDV IVPUSH SCH ×3 (11:00→22:14)
--- NOTE | 2021-01-24 11:06 | OR ---
SURGEON: Katy Norman MD DATE OF PROCEDURE: 01/24/2021 PREOPERATIVE DIAGNOSES: 1. A 30-year-old G2, P1-0-0-1 at 39 weeks and 1 day gestation. 2. History of delivery x1 and declines trial of labor. 3. Gestational diabetes, diet controlled. 4. Positive for COVID on preoperative testing. POSTOPERATIVE DIAGNOSES: 1. A 30-year-old G2, P2-0-0-2 at 39 weeks and 1 day gestation. 2. History of delivery x1 and declines trial of labor. 3. Gestational diabetes, diet controlled. 4. Positive for COVID on preoperative testing. PROCEDURE: Repeat low transverse section. PRIMARY SURGEON: Katy Norman MD ANESTHESIA: Spinal. INTRAVENOUS FLUIDS: 2000 mL LR. URINE OUTPUT: 125 mL. ESTIMATED BLOOD LOSS: 700 mL. ANTIBIOTIC PROPHYLAXIS: 2 g of Ancef IV. PATHOLOGY: Placenta and cord blood. FINDINGS: Live male infant in cephalic presentation. scores 8 and 9 at one and five minutes respectively. Weight 3150 g. Placenta intact with 3-vessel cord. Normal-appearing uterus, ovaries, and fallopian tubes. INDICATIONS: This is a 30-year-old G2, P1-0-0-1 who presented at 39 weeks and 1 day gestation for scheduled repeat delivery. She declined trial of labor after . Risks, benefits, and alternatives were reviewed with the patient prior to surgery. DESCRIPTION OF PROCEDURE: The patient was taken to the operating room where spinal anesthesia was obtained without difficulty. She was placed in dorsal supine position with a leftward tilt. She was prepared and draped in normal sterile fashion. A Pfannenstiel skin incision was made using the previous scar and carried through to the underlying layer of fascia with scalpel. The fascial incision was extended laterally using curved Neumann scissors. The superior aspect of the fascial incision was grasped with Zack clamps, elevated, and underlying rectus muscles dissected off bluntly and with curved Neumann scissors. In similar fashion, the anterior aspect of fascial incision was grasped with Zack clamps, elevated, and underlying rectus muscles dissected off bluntly and with curved Neumann scissors. The peritoneum was identified in the midline and entered bluntly. The peritoneal incision was extended using manual traction. A large Tez retractor was placed. Bladder flap was created in usual fashion. A low uterine hysterotomy was created with a scalpel. This incision was extended using manual traction. Artificial rupture of membranes occurred with clear fluid noted. The 's head was delivered atraumatically followed by the shoulders and remainder of the body. After approximately 30 seconds, the cord clamped and cut. The infant was handed off to the awaiting nurse and respiratory therapist. Cord blood was obtained. Placenta was then delivered intact with 3-vessel cord via manual extraction. The uterus was cleared of all clots and debris. The uterine incision was repaired with a running lock stitch of 0 Vicryl suture. A second stitch of same suture was used to obtain hemostasis. The gutters were cleared of all clots and debris. The uterus was returned to the abdomen, inspected, and noted to be hemostatic. The Tez retractor was removed. The fascial incision was closed with a running stitch of 0 Vicryl suture. Subcutaneous tissue was closed with a running stitch of 3-0 Vicryl suture. The skin was closed with a 4-0 Monocryl in a subcuticular fashion. All sponge, lap, and needle counts were correct x2. The patient and tolerated the delivery well. [id number] / DESTINIL /[id number] NOELLE
[2021-01-24] MEDS ORDERED: Docusate Sodium 100 MG Cap ONE (11:14)
[2021-01-24] MEDS: Docusate Sodium 100 MG Cap PO SCH (22:12)
[2021-01-24] MEDS ORDERED: fentaNYL 250 MCG/5 ML SDV ONE (22:40)
[2021-01-24] MEDS ORDERED: Propofol 200 MG/20 ML SDV ONE (22:40)
[2021-01-25] MEDS: Ketorolac 30 MG/ML SDV IVPUSH SCH ×3 (08:33→11:19)
--- NOTE | 2021-01-25 08:44 | PCM.PNPP ---
- General Info Date of Service: 01/25/21 Subjective Update: Patient doing well. Has ambulated in room and voided since priest removed. going well. Pain well controlled. Functional Status: Reports: Pain Controlled, Tolerating Diet, Ambulating, Urinating - Review of Systems General: Reports: No Symptoms HEENT: Reports: No Symptoms Pulmonary: Reports: No Symptoms Cardiovascular: Reports: No Symptoms Gastrointestinal: Reports: No Symptoms Genitourinary: Reports: No Symptoms Musculoskeletal: Reports: No Symptoms Skin: Reports: No Symptoms Neurological: Reports: No Symptoms Psychiatric: Reports: No Symptoms - Patient Data Vital Signs - Most Recent: Last Vital Signs Temp 36.3 C 01/25/21 04:00 Pulse 75 01/25/21 04:00 Resp 16 01/25/21 04:00 BP 100/65 01/25/21 04:00 Pulse Ox 98 01/25/21 04:00 Weight - Most Recent: 78.925 kg I&O - Last 24 Hours: Intake & Output 01/24/21 01/25/21 01/25/21 22:59 06:59 14:59 Intake Total 1000 1000 Output Total 1550 2600 Balance -550 -1600 Lab Results - Last 24 Hours: Laboratory Results - last 24 hr 01/25/21 Range/Units 06:37 Hgb 9.4 L (12.0-16.0) g/dL Hct 28.5 L (36.0-46.0) % Med Orders - Current: Current Medications Bisacodyl (Bisacodyl 10 Mg Supp) 10 mg RECTAL ONETIME PRN PRN Reason: Constipation Diphenhydramine HCl (Diphenhydramine 50 Mg/Ml Sdv) 25 mg IVPUSH Q6H PRN PRN Reason: Itching or Nausea Last Admin: 01/24/21 12:03 Dose: 25 mg Documented by: Docusate Sodium (Docusate Sodium 100 Mg Cap) 100 mg PO BID BRONWYN Last Admin: 01/24/21 22:12 Dose: 100 mg Documented by: Emollient Ointment (Lanolin 100% Cream 7 Gm Tube) 0 gm TOP ASDIRECTED PRN PRN Reason: Sore Nipples Last Admin: 01/24/21 22:12 Dose: 1 applic Documented by: Oxytocin/Sodium Chloride (Oxytocin 30 Unit In Ns 0.9% 500 Ml Premix) 30 unit in 500 mls @ 250 mls/hr IV TITRATE BRONWYN Lactated Ringer's (Ringers, Lactated) 1,000 mls @ 500 mls/hr IV BOLUS [facility] Last Admin: 01/24/21 07:29 Dose: 500 mls/hr Documented by: Lactated Ringer's (Ringers, Lactated) 1,000 mls @ 125 mls/hr IV ASDIRECTED BRONWYN Last Admin: 01/24/21 22:09 Dose: 125 mls/hr Documented by: Oxytocin/Sodium Chloride (Oxytocin 30 Unit In Ns 0.9% 500 Ml Premix) 30 unit in 500 mls @ 999 mls/hr IV TITRATE BRONWYN; Protocol Ibuprofen (Ibuprofen 800 Mg Tab) 800 mg PO Q8H PRN PRN Reason: Cramping Ketorolac Tromethamine (Ketorolac 30 Mg/Ml Sdv) 30 mg IVPUSH Q6H BRONWYN Stop: 01/25/21 09:16 Last Admin: 01/25/21 08:33 Dose: Not Given Documented by: Ondansetron HCl (Ondansetron 4 Mg/2 Ml Sdv) 4 mg IVPUSH Q4H PRN PRN Reason: Nausea/Vomiting Oxycodone/Acetaminophen (Acetaminophen/Oxycodone 325-5 Mg Tab) 1 tab PO Q4H PRN PRN Reason: Pain (severe 7-10) Oxycodone/Acetaminophen (Acetaminophen/Oxycodone 325-5 Mg Tab) 2 tab PO Q4H PRN PRN Reason: Pain (severe 7-10) Sodium Chloride (Sodium Chloride 0.9% 10 Ml Syringe) 10 ml FLUSH ASDIRECTED PRN PRN Reason: Keep Vein Open Sodium Chloride (Sodium Chloride 0.9% 2.5 Ml Syringe) 2.5 ml FLUSH ASDIRECTED PRN PRN Reason: Keep Vein Open Sodium Chloride (Sodium Chloride 0.9% 10 Ml Sdv) 10 ml IV ASDIRECTED PRN PRN Reason: IV Use Discontinued Medications Citric Acid/Sodium Citrate (Citric Acid/Sodium Citrate Solution 30 Ml Cup) 30 ml PO ONETIME ONE Stop: 01/24/21 05:50 Last Admin: 01/24/21 07:30 Dose: 30 ml Documented by: Dexamethasone (Dexamethasone 4 Mg/Ml 5 Ml Mdv) Confirm Administered Dose 20 mg .ROUTE .STK-MED ONE Stop: 01/24/21 08:55 Docusate Sodium (Docusate Sodium 100 Mg Cap) Confirm Administered Dose 100 mg .ROUTE .STK-MED ONE Stop: 01/24/21 11:15 Last Admin: 01/24/21 11:24 Dose: 100 mg Documented by: Ephedrine Sulfate (Ephedrine 50 Mg/Ml Sdv) Confirm Administered Dose 50 mg .ROUTE .STK-MED ONE Stop: 01/24/21 08:55 Fentanyl (Fentanyl 250 Mcg/5 Ml Sdv) Confirm Administered Dose 250 mcg .ROUTE .STK-MED ONE Stop: 01/24/21 22:41 Glycopyrrolate (Glycopyrrolate 0.2 Mg/Ml Sdv) Confirm Administered Dose 0.4 mg .ROUTE .STK-MED ONE Stop: 01/24/21 08:55 Cefazolin Sodium/Dextrose 2 gm (/ Premix) 50 mls @ 100 mls/hr IV ONETIME ONE Stop: 01/24/21 08:36 Acetaminophen (Ofirmev 1000 Mg/100 Ml) Confirm Administered Dose 100 mls @ as directed .ROUTE .STK-MED ONE Stop: 01/24/21 08:58 Miscellaneous Medication (Phenylephrine Hcl In 0.9% Nacl 1 Mg/10 Ml Syringe) Confirm Administered Dose 1 mg .ROUTE .STK-MED ONE Stop: 01/24/21 08:55 Morphine Sulfate (Morphine Pf 10 Mg/10 Ml Sdv) Confirm Administered Dose 10 mg .ROUTE .STK-MED ONE Stop: 01/24/21 07:22 Ondansetron HCl (Ondansetron 4 Mg/2 Ml Sdv) Confirm Administered Dose 4 mg .ROUTE .STK-MED ONE Stop: 01/24/21 08:55 Propofol (Propofol 200 Mg/20 Ml Sdv) Confirm Administered Dose 200 mg .ROUTE .STK-MED ONE Stop: 01/24/21 22:41 - Infant Interaction Disposition, : [place] in Room with Family Feeding: Breastfed ; Nursed Well Support Person: Sister - Recovery Exam Fundal Tone: Firm Fundal Level: At Umbilicus Fundal Placement: Midline Lochia Amount: Scant Lochia Color: Rubra/Red Bladder Status: Voiding Urinary Elimination: Voided - Exam General: Alert, Oriented Neck: Supple Lungs: Normal Respiratory Effort GI/Abdominal Exam: Soft, Non-Tender, No Distention Extremities: Non-Tender, No Pedal Edema Skin: Warm, Dry, Intact Neurological: No New Focal Deficit Psy/Mental Status: Alert, Normal Affect, Normal Mood - Problem List & Annotations (1) S/P repeat low transverse SNOMED Code(s): 663083333, 20530893, 374980499, [id number], 262670054 Code(s): Z98.891 - HISTORY OF UTERINE SCAR FROM PREVIOUS SURGERY Status: Acute Current Visit: Yes (2) Gestational diabetes mellitus (GDM), delivered SNOMED Code(s): 46385782, 654701783 Code(s): O24.429 - GESTATIONAL DIABETES MELLITUS IN CHILDBIRTH, UNSP CONTROL Status: Acute Current Visit: Yes - Problem List Review Problem List Initiated/Reviewed/Updated: Yes - My Orders Last 24 Hours: My Active Orders 01/24/21 09:11 Patient Status [ADT] Routine Ambulate [RC] PER UNIT ROUTINE Antiembolic Devices [RC] PER UNIT ROUTINE Communication Order [RC] PER UNIT ROUTINE Communication Order [RC] Per Unit Routine Intake and Output [RC] Q8H May Shower [RC] ASDIRECTED Notify Provider Intake and Out [RC] ASDIRECTED Notify Provider Vital Signs [RC] ASDIRECTED RT Incentive Spirometry [RC] Q2HWA Vital Signs [RC] PER UNIT ROUTINE Acetaminophen/oxyCODONE [Percocet 325-5 MG] 1 tab PO Q4H PRN Acetaminophen/oxyCODONE [Percocet 325-5 MG] 2 tab PO Q4H PRN Ibuprofen [Motrin] 800 mg PO Q8H PRN Lanolin [Lansinoh HPA] See Dose Instructions TOP ASDIRECTED PRN Ondansetron [Zofran] 4 mg IVPUSH Q4H PRN bisacodyL [Dulcolax] 10 mg RECTAL ONETIME PRN diphenhydrAMINE [Benadryl] 25 mg IVPUSH Q6H PRN Abdominal Binder [OM.PC] Routine Assess Lochia [WOMSER] Per Unit Routine Assess Uterine Involution [WOMSER] Per Unit Routine Breast Pump [WOMSER] Per Unit Routine Heat Therapy [OM.PC] Routine Ice Therapy [OM.PC] Routine Peripheral IV Discontinue [OM.PC] Routine Sequential Compression Device [OM.PC] Per Unit Routine 01/24/21 09:15 Ketorolac [Toradol] 30 mg IVPUSH Q6H Lactated Ringers [Ringers, Lactated] 1,000 ml IV ASDIRECTED Oxytocin/0.9 % Sodium Chloride [Oxytocin 30 Unit in NS 0.9% 500 ML Premix] 30 unit in 500 ml IV TITRATE 01/24/21 10:00 Notify Provider Vital Signs [RC] PRN 01/24/21 Lunch Regular Diet [DIET] 01/24/21 21:00 Docusate Sodium [Colace] 100 mg PO BID 01/25/21 08:39 Ready for Discharge [RC] PER UNIT ROUTINE - Assessment Assessment:: 30yo s/p #2 at 39w1d, POD#1 - Plan Plan:: Continue routine care. Patient desires discharge home today, reviewed discharge instruction/precautions. All questions answered. Rh positive, Rubella immune, GBS negative.
[2021-01-25] MEDS: Docusate Sodium 100 MG Cap PO SCH (09:39)
== END 2021-01-25 13:05 | disposition home or self-care (01) | DRG 786 ==
LOC: MW.OB 05:30
PROVIDERS: ADMIT Obstetrics & Gynecology; ATTEND Obstetrics & Gynecology
PROC: 10D00Z1 Extraction of Products of Conception, Low, Open Approach (ICD-10-PCS; principal; 2021-01-24)
DX: O34.211 Maternal care for low transverse scar from previous cesarean delivery (principal); U07.1 COVID-19; O98.52 Other viral diseases complicating childbirth; O24.429 Gestational diabetes mellitus in childbirth, unspecified control; O99.62 Diseases of the digestive system complicating childbirth; O24.420 Gestational diabetes mellitus in childbirth, diet controlled; K21.9 Gastro-esophageal reflux disease without esophagitis; Z87.891 Personal history of nicotine dependence; Z88.0 Allergy status to penicillin; Z88.1 Allergy status to other antibiotic agents; Z3A.39 39 weeks gestation of pregnancy; Z37.0 Single live birth
CPT/HCPCS: 36415; 59025; 82947; 85014; 85018; 85027; 86592; 86850; 86900; 86901; 88307; A9270-GY; J0131; J1100; J1200; J1885; J2270; J2370; J2405; J2704; J3010; J3490; J7120